=== PATIENT | male | born 1975 | race Caucasian/White ===

== ENCOUNTER 2017-02-01 21:38 | Emergency (ER) | payer OTHER ==
[~2017-02-01] VITALS: Ht 165.1 cm; Wt 72.6 kg
[~2017-02-01 21:38] MED LIST: AMOXICILLIN500 MG PO; AUGMENTIN 500 M1 TAB PO; BACTRIM DS 8001 TA1 PO; CELEXA10 MG PO; CEPHALEXIN500 M1 PO; CIPROFLOXACIN500 MG PO; CORTISPORIN SUS10 ML OT; Carafate1 GM PO; FLEXERIL10 MG PO; FLOMAX0.4 MG PO; FLONASE ALLERG9.9 ML NAS; FLOVENT HFA12 GM IH; HYDROCODONE BIT1 T11 PO; KEFLEX500 M1 PO; KEFLEX500 MG PO; LOMOTIL 0.025 M1 TA1 PO; LOMOTIL 0.025 M1 TAB PO; MOTRIN800 MG PO; Motrin,Rufen800 MG PO; NAPROSYN500 MG PO; NKHM PO; OMEPRAZOLE20 MG PO; PEPCID20 MG PO; PERCOCET 325 MG1 TA2 PO; PHENERGAN25 M1 PO; PREDNICOT20 MG PO; PRILOSEC20 M2 PO; PROTONIX40 MG PO; ROBAXIN500 MG PO; ROBAXIN750 MG PO; SEROQUEL100 MG PO; SEROQUEL200 MG PO; SILVADENE1% TP; SUDAFED 12 HOU120 MG PO; TESSALON PERLE100 M1 PO; THERA M PLUS T1 EACH PO; TRAMADOL HCL50 MG PO; TRIMOX500 MG PO; ULTRAM50 MG PO; VICODIN 5/500 505 MG PO; VICODIN ES 7501 TAB PO; ZOFRAN ODT4 MG SL; ZOFRAN4 MG PO
[2017-02-01 22:08] LABS: BASO % 0.2 % (0.0-1.0); EOS # 0.4 10*3/uL (0.0-0.4); EOS % 3.1 % (1.0-4.0); HEMATOCRIT 41.9 % (42.0-52.0); HEMOGLOBIN 14.1 g/dl (14.0-18.0); IG # 0.1 10*3/uL (0.0-0.1); LYMPH # 4.8 10*3/uL (1.3-4.4); MEAN CELL VOLUME 92.7 fl (80.0-94.0); MEAN CORPUSCULAR HGB 31.2 pg (27.0-31.0); MEAN CORPUSCULAR HGB CONC 33.7 g/dl (33.0-37.0); MEAN PLATELET VOLUME 11.6 fl (9.6-12.3); MONO # 1.4 10*3/uL (0.1-1.0); MONO % 10.7 % (3.0-9.0); NEUT % 47.3 % (47.0-73.0); PLATELET COUNT AUTOMATED 220 10*3/uL (130-400); RED BLOOD COUNT 4.52 10*6/uL (4.50-5.90); RED CELL DISTRI WIDTH 13.4 % (0-14.5); WHITE BLOOD COUNT 12.6 10*3/uL (4.8-10.8)
[2017-02-01 22:28] LABS: BILIRUBIN NEGATIVE (NEGATIVE); BLOOD 1+ (NEGATIVE); CLARITY CLEAR (CLEAR); COLOR YELLOW (YELLOW); GLUCOSE NEGATIVE (NEGATIVE); KETONE NEGATIVE (NEGATIVE); LEUKO ESTERASE NEGATIVE (NEGATIVE); NITRITE NEGATIVE (NEGATIVE); PROTEIN NEGATIVE (NEGATIVE); SPECIFIC GRAVITY 1.015 (1.005-1.030); UROBILINOGEN 0.2 E.U./dl (0.2-1.0)
[2017-02-01 22:36] LABS: BACTERIA 1+; URINE REFLEX COMMENT YES (NO)
[2017-02-01 22:47] LABS: BUN 18 mg/dl (7-24); CARBON DIOXIDE 26 mmol/L (21-32); CHLORIDE 110 mmol/L (98-107); EST GLOM FILT AFRICAN AMERICAN > 60 ml/min; GLUCOSE 91 mg/dL (65-99); POTASSIUM 3.9 mmol/L (3.5-5.1); SODIUM 144 mmol/L (136-145)
[2017-02-01] MEDS ORDERED: ULTRAM50 MG PO (23:06)
== END 2017-02-01 23:30 | disposition home or self-care (01) ==
LOC: ED 21:38
PROVIDERS: Emergency Medicine; Physician Assistant
DX: R10.9 Unspecified abdominal pain (principal); Z87.442 Personal history of urinary calculi; F17.200 Nicotine dependence, unspecified, uncomplicated; F32.9 Major depressive disorder, single episode, unspecified; J45.909 Unspecified asthma, uncomplicated; Z79.899 Other long term (current) drug therapy

== ENCOUNTER 2017-02-25 17:08 | Inpatient (IN) | payer OTHER ==
[~2017-02-25] VITALS: Ht 165.1 cm; Wt 63.2 kg
--- NOTE | ~2017-02-25 | CON ---
[place], [place] REPORT OF CONSULTATION NAME: MELCHOR HUNTER UNIT #: [id number] ROOM: 515 DOCTOR: SEAMUS JENKINS MDPREETNICKI BIRTHDATE: [birth year] DOS: HISTORY OF PRESENT ILLNESS: The patient is 41 years old who has presented with chief complaint of relentless nausea, vomiting, undergoing investigation. The patient has been placed on Protonix on antiemetics, IV hydration. At the time of admission, white blood cell was 14, H and H of 16 and 46. Differential within normal limit. Lactic acid 2.7. INR 1.0. Comprehensive metabolic panel, electrolytes balanced, liver function test normal. C-reactive protein is 0.4. Chest x-ray, no active disease. CT scan of the abdomen and pelvis, no acute process. Lactic acid 1.3. PAST MEDICAL HISTORY: Depression, gastroesophageal reflux, allergic rhinitis, Radha-Pearl tear. PAST SURGICAL HISTORY: Amputation of the finger, lithotripsy. SOCIAL HISTORY: Stopped smoking 17 years ago, stopped alcohol 3 months ago. FAMILY HISTORY: Noncontributory. ALLERGIES: To no known medications. MEDICATIONS: Medication list has been reviewed. REVIEW OF SYSTEMS: HEENT: Denies double vision, blurred vision. RESPIRATORY: Denies shortness of breath. CARDIOVASCULAR: Denies chest pain. DIGESTIVE SYSTEM: Hematemesis, relentless emesis. PHYSICAL EXAMINATION: VITAL SIGNS: Stable. HEENT: Head normocephalic, nontraumatic. Eyes: Pupils round, reactive. Sclerae nonicteric. Conjunctivae pink. Nose: Nonobstructed, nondeviated. Mouth free of aphthae ulcer, thrush. NECK: Supple, no thyromegaly, no cervical lymphadenopathy. CHEST: Symmetric anatomy, equal expansion. No wheeze. No rhonchi. HEART: Normal sinus rhythm, no gallop, no murmur. ABDOMEN: Soft. No hepato-organomegaly. Bowel sounds present. No pulsatile mass. EXTREMITIES: No cyanosis. No pedal edema. NEUROLOGIC: Alert, oriented to time, place, person. IMPRESSION: Hematemesis, recurrent emesis. OTHER ADJUNCTIVE DIAGNOSES: As outlined in the paragraph of past medical and surgical history. Blood culture negative. Urine culture negative. Hepatic function tests, amylase, lipase all within normal limits. CBC latest one, white blood cell 10, H and H of 14 and 43, differential within [place], [place] REPORT OF CONSULTATION NAME: MELCHOR HUNTER UNIT #: [id number] ROOM: [facility] DOCTOR: SEBASTIEN JENKINS MD BIRTHDATE: [birth year] normal limits. PLAN AND DISCUSSION: We are going to proceed with endoscopic assessment of upper GI tract. SEBASTIEN JENKINS MD CM:CONSTR:REPORT OF CONSULTATION 1045 03/01/17 0325 interface
--- NOTE | ~2017-02-25 | O ---
[place], [place] OPERATIVE NOTE NAME: MELCHOR HUNTER UNIT #: [id number] ROOM: 515 DOCTOR: SEBASTIEN JENKINS MD BIRTHDATE: [birth year] DOS: 02/28/2017 INDICATIONS: The patient is 41 years old who has presented with chief complaint of hematemesis, old history of ETOH and nicotine in very remote past. PROCEDURE: Today's procedure part of investigation is panendoscopy plus biopsy. PREMEDICATION: Versed and Diprivan. SCOPE: Olympus forward-viewing gastroscope Q10 video. REPORT: After putting the patient in the left lateral position and after application of lubricant to the scope, the scope was introduced. Thereafter, under direct visualization, I advanced through the length of esophagus without difficulty. Gastric pouch was entered. Small hiatal hernia was noticed. Gastritis seen. Duodenal bulb, second and third part within normal limits. Antral biopsy obtained. The patient extubated, tolerated procedure well. IMPRESSION: Small hiatal hernia, gastritis. No evidence of Radha-Pearl. No esophageal varicosity. PLAN: Protonix 40 mg daily. Regular diet. Discharge when stable. SEBASTIEN JENKINS MD CM:OPRECORD:OPERATIVE NOTE 1108 1623 SEBASTIEN JENKINS MD 02/28/17 1623 interface
[2017-02-25 17:12] VITALS: BP 110/60
[2017-02-25 17:40] LABS: BASO % 0.3 % (0.0-1.0); EOS # 0.1 10*3/uL (0.0-0.4); EOS % 0.5 % (1.0-4.0); HEMATOCRIT 46.6 % (42.0-52.0); IG # 0.1 10*3/uL (0.0-0.1); LYMPH # 3.3 10*3/uL (1.3-4.4); LYMPH % 22.6 % (27.0-41.0); MEAN CELL VOLUME 90.3 fl (80.0-94.0); MEAN CORPUSCULAR HGB CONC 34.3 g/dl (33.0-37.0); MEAN PLATELET VOLUME 11.5 fl (9.6-12.3); MONO # 1.3 10*3/uL (0.1-1.0); MONO % 8.7 % (3.0-9.0); NEUT # 9.7 10*3/uL (2.3-7.9); PLATELET COUNT AUTOMATED 227 10*3/uL (130-400); RED BLOOD COUNT 5.16 10*6/uL (4.50-5.90); RED CELL DISTRI WIDTH 13.1 % (0-14.5); WHITE BLOOD COUNT 14.5 10*3/uL (4.8-10.8)
[2017-02-25 17:49] LABS: PROTHROMBIN TIME 10.7 SECONDS (9.0-12.4)
[2017-02-25 17:57] LABS: ALBUMIN 4.6 gm/dl (3.1-4.5); ALKALINE PHOSPHATASE 102 U/L (45-117); BILIRUBIN, TOTAL 0.5 mg/dl (0.2-1.0); BUN 11 mg/dl (7-24); C-REACTIVE PROTEIN 0.42 MG/DL (0-0.3); CARBON DIOXIDE 23 mmol/L (21-32); CHLORIDE 108 mmol/L (98-107); CKMB 0.7 ng/ml (0.5-3.6); CPK 135 U/L (39-308); EST GLOM FILT AFRICAN AMERICAN > 60 ml/min; GLUCOSE 121 mg/dL (65-99); MAGNESIUM 2.2 mg/dL (1.5-2.1); SGOT/AST 16 IU/L (3-35); SGPT/ALT 21 U/L (12-78); SODIUM 141 mmol/L (136-145); TOTAL PROTEIN 8.4 gm/dL (6.4-8.2)
[2017-02-25 17:58] LABS: TROPONIN I < 0.015 ng/ml (<0.045)
[2017-02-25 19:38] LABS: LA>2 REFLEX 2 HR DRAW NOW
[2017-02-25 21:10] LABS: BILIRUBIN NEGATIVE (NEGATIVE); BLOOD 3+ (NEGATIVE); CLARITY CLEAR (CLEAR); COLOR YELLOW (YELLOW); GLUCOSE NEGATIVE (NEGATIVE); KETONE 3+ (NEGATIVE); LEUKO ESTERASE NEGATIVE (NEGATIVE); NITRITE NEGATIVE (NEGATIVE); PH 6.5 (5.0-9.0); PROTEIN TRACE (NEGATIVE); SPECIFIC GRAVITY <= 1.005 (1.005-1.030); UROBILINOGEN 0.2 E.U./dl (0.2-1.0)
[2017-02-25 21:22] LABS: BACTERIA TRACE; EPITHELIAL CELLS 15-20; URINE REFLEX COMMENT YES (NO); WBC 0-2 wbc/hpf (0-5)
[2017-02-25 21:42] VITALS: BP 140/90
[2017-02-25 22:30] VITALS: BP 135/89
[2017-02-25] MEDS ORDERED: SEROQUEL300 MG PO (22:46)
[2017-02-25] MEDS ORDERED: ULTRAM50 MG PO (22:49)
[2017-02-26] VITALS: BP 128/69
[2017-02-26 04:52] VITALS: BP 105/63
[2017-02-26 06:12] LABS: BASO % 0.2 % (0.0-1.0); EOS # 0.2 10*3/uL (0.0-0.4); EOS % 1.9 % (1.0-4.0); HEMOGLOBIN 14.5 g/dl (14.0-18.0); IG # 0.1 10*3/uL (0.0-0.1); LYMPH # 4.6 10*3/uL (1.3-4.4); LYMPH % 39.8 % (27.0-41.0); MEAN CORPUSCULAR HGB 30.9 pg (27.0-31.0); MEAN PLATELET VOLUME 11.4 fl (9.6-12.3); MONO # 1.2 10*3/uL (0.1-1.0); MONO % 10.2 % (3.0-9.0); NEUT # 5.4 10*3/uL (2.3-7.9); PLATELET COUNT AUTOMATED 181 10*3/uL (130-400); RED CELL DISTRI WIDTH 13.3 % (0-14.5); WHITE BLOOD COUNT 11.5 10*3/uL (4.8-10.8)
[2017-02-26 06:19] LABS: MEAN CELL VOLUME 93.6 fl (80.0-94.0)
[2017-02-26 06:48] LABS: ALBUMIN 3.8 gm/dl (3.1-4.5); ALKALINE PHOSPHATASE 83 U/L (45-117); BILIRUBIN, TOTAL 0.7 mg/dl (0.2-1.0); BUN 8 mg/dl (7-24); CARBON DIOXIDE 28 mmol/L (21-32); CHLORIDE 108 mmol/L (98-107); CHOLESTEROL 290 mg/dL (<200); EST GLOM FILT AFRICAN AMERICAN > 60 ml/min; FREE T4 1.22 ng/dl (0.76-1.46); GLUCOSE 95 mg/dL (65-99); HDL CHOLESTEROL 58 mg/dl (40-60); LDL CHOLESTEROL 217 mg/dL (9-159); MAGNESIUM 1.9 mg/dL (1.5-2.1); PHOSPHOROUS 3.1 mg/dL (2.5-4.9); POTASSIUM 3.5 mmol/L (3.5-5.1); SGOT/AST 16 IU/L (3-35); SGPT/ALT 21 U/L (12-78); SODIUM 141 mmol/L (136-145); TOTAL PROTEIN 7.1 gm/dL (6.4-8.2); TRIGLYCERIDES 75 mg/dl (<150); VLDL CHOLESTEROL 15 mg/dL (6-40)
[2017-02-26 07:25] LABS: HEMOGLOBIN A1c 5.8 % (4.8-5.6)
[2017-02-26 07:37] LABS: FOLIC ACID 19.79 ng/mL (>5.38); VITAMIN D, 25-HYDROXY 32.2 ng/mL (30-100)
[2017-02-26 08:00] VITALS: BP 118/68
[2017-02-26] MEDS ORDERED: CITALOPRAM HYDR20 MG PO (09:57)
[2017-02-26] MEDS ORDERED: OMEPRAZOLE D/R20 MG PO (09:59)
[2017-02-26 16:00] VITALS: BP 127/97
[2017-02-26 20:00] VITALS: BP 135/85
[2017-02-27] VITALS: BP 131/75
[2017-02-27 07:38] LABS: BASO % 0.3 % (0.0-1.0); EOS # 0.3 10*3/uL (0.0-0.4); EOS % 2.6 % (1.0-4.0); HEMATOCRIT 43.2 % (42.0-52.0); HEMOGLOBIN 14.2 g/dl (14.0-18.0); IG # 0.1 10*3/uL (0.0-0.1); LYMPH # 3.7 10*3/uL (1.3-4.4); LYMPH % 36.7 % (27.0-41.0); MEAN CELL VOLUME 93.9 fl (80.0-94.0); MEAN CORPUSCULAR HGB 30.9 pg (27.0-31.0); MEAN CORPUSCULAR HGB CONC 32.9 g/dl (33.0-37.0); MEAN PLATELET VOLUME 11.1 fl (9.6-12.3); MONO # 1.2 10*3/uL (0.1-1.0); MONO % 11.9 % (3.0-9.0); NEUT # 4.8 10*3/uL (2.3-7.9); NEUT % 47.5 % (47.0-73.0); PLATELET COUNT AUTOMATED 168 10*3/uL (130-400); RED CELL DISTRI WIDTH 13.5 % (0-14.5)
[2017-02-27 07:59] VITALS: BP 130/74
[2017-02-27 08:11] LABS: ALBUMIN 3.6 gm/dl (3.1-4.5); BILIRUBIN, DIRECT 0.1 mg/dL (0.0-0.2); BILIRUBIN, TOTAL 0.7 mg/dl (0.2-1.0); TOTAL PROTEIN 6.9 gm/dL (6.4-8.2)
[2017-02-27 12:00] VITALS: BP 126/86
[2017-02-27 16:00] VITALS: BP 137/85
[2017-02-27 20:00] VITALS: BP 138/81
[2017-02-28] VITALS (7 sets, daily range): BP systolic 87–139; BP diastolic 54–89
[2017-02-28] MEDS ORDERED: PANTOPRAZOLE SO40 MG PO (12:22)
[2017-02-28] MEDS ORDERED: SIMVASTATIN20 MG PO (12:22)
== END 2017-02-28 13:55 | disposition home or self-care (01) | DRG 872 ==
LOC: ED 17:08 → 5E 21:20 → EDHOLD 21:20 → 5E 21:29
PROVIDERS: Emergency Medicine; Internal Medicine; Internal Medicine Gastroenterology; Internal Medicine Hospice and Palliative Medicine
PROC: 0DB68ZX Excision of Stomach, Via Natural or Artificial Opening Endoscopic, Diagnostic (ICD-10-PCS; principal; 2017-02-28)
DX: A41.9 Sepsis, unspecified organism (principal); K92.0 Hematemesis; E87.8 Other disorders of electrolyte and fluid balance, not elsewhere classified; E67.8 Other specified hyperalimentation; F33.9 Major depressive disorder, recurrent, unspecified; E83.41 Hypermagnesemia; K21.9 Gastro-esophageal reflux disease without esophagitis; F10.10 Alcohol abuse, uncomplicated; R31.29 Other microscopic hematuria; E78.00 Pure hypercholesterolemia, unspecified; R82.4 Acetonuria; R73.9 Hyperglycemia, unspecified; R73.03 Prediabetes; F17.200 Nicotine dependence, unspecified, uncomplicated; K29.70 Gastritis, unspecified, without bleeding; K44.9 Diaphragmatic hernia without obstruction or gangrene; Z87.442 Personal history of urinary calculi; Z87.11 Personal history of peptic ulcer disease; Z89.029 Acquired absence of unspecified finger(s); Z79.899 Other long term (current) drug therapy

== ENCOUNTER 2017-03-25 21:30 | Emergency (ER) | payer OTHER ==
[~2017-03-25] VITALS: Wt 68.0 kg
[~2017-03-25 21:30] MED LIST changes: +CITALOPRAM HYDR20 MG PO; +OMEPRAZOLE D/R20 MG PO; +PANTOPRAZOLE SO40 MG PO; +SEROQUEL300 MG PO; +SIMVASTATIN20 MG PO
[2017-03-25 22:12] LABS: BASO # 0.1 10*3/uL (0.0-0.1); BASO % 0.3 % (0.0-1.0); EOS # 0.3 10*3/uL (0.0-0.4); EOS % 2.2 % (1.0-4.0); HEMATOCRIT 44.3 % (42.0-52.0); IG # 0.2 10*3/uL (0.0-0.1); LYMPH % 25.9 % (27.0-41.0); MEAN CELL VOLUME 91.5 fl (80.0-94.0); MEAN CORPUSCULAR HGB CONC 33.9 g/dl (33.0-37.0); MEAN PLATELET VOLUME 10.6 fl (9.6-12.3); MONO # 1.5 10*3/uL (0.1-1.0); MONO % 9.8 % (3.0-9.0); NEUT # 9.2 10*3/uL (2.3-7.9); NEUT % 60.2 % (47.0-73.0); PLATELET COUNT AUTOMATED 197 10*3/uL (130-400); RED BLOOD COUNT 4.84 10*6/uL (4.50-5.90); RED CELL DISTRI WIDTH 13.2 % (0-14.5); WHITE BLOOD COUNT 15.3 10*3/uL (4.8-10.8)
[2017-03-25 22:26] LABS: ALKALINE PHOSPHATASE 105 U/L (45-117); BILIRUBIN, TOTAL 0.4 mg/dl (0.2-1.0); BUN 11 mg/dl (7-24); CARBON DIOXIDE 27 mmol/L (21-32); CHLORIDE 102 mmol/L (98-107); EST GLOM FILT AFRICAN AMERICAN > 60 ml/min; GLUCOSE 97 mg/dL (65-99); POTASSIUM 3.4 mmol/L (3.5-5.1); SGOT/AST 20 IU/L (3-35); SGPT/ALT 25 U/L (12-78); SODIUM 141 mmol/L (136-145); TOTAL PROTEIN 7.8 gm/dL (6.4-8.2)
[2017-03-25] MEDS ORDERED: ZOFRAN ODT4 MG SL (22:57)
== END 2017-03-25 23:18 | disposition home or self-care (01) ==
LOC: ED 21:30
PROVIDERS: Physician Assistant
DX: K29.70 Gastritis, unspecified, without bleeding (principal); R11.2 Nausea with vomiting, unspecified

== ENCOUNTER 2017-06-05 12:41 | Emergency (ER) | payer OTHER ==
[~2017-06-05] VITALS: Wt 61.2 kg
[2017-06-05] MEDS ORDERED: ONDANSETRON HYDR4 M1 PO (12:48)
[2017-06-05 13:19] LABS: BASO % 0.2 % (0.0-1.0); EOS # 0.1 10*3/uL (0.0-0.4); EOS % 0.5 % (1.0-4.0); HEMOGLOBIN 15.2 g/dl (14.0-18.0); LYMPH # 2.8 10*3/uL (1.3-4.4); LYMPH % 25.3 % (27.0-41.0); MEAN CELL VOLUME 92.4 fl (80.0-94.0); MEAN CORPUSCULAR HGB 31.9 pg (27.0-31.0); MEAN CORPUSCULAR HGB CONC 34.5 g/dl (33.0-37.0); MEAN PLATELET VOLUME 10.7 fl (9.6-12.3); MONO # 0.9 10*3/uL (0.1-1.0); MONO % 8.1 % (3.0-9.0); NEUT # 7.1 10*3/uL (2.3-7.9); NEUT % 65.1 % (47.0-73.0); PLATELET COUNT AUTOMATED 215 10*3/uL (130-400); RED BLOOD COUNT 4.76 10*6/uL (4.50-5.90); RED CELL DISTRI WIDTH 13.1 % (0-14.5); WHITE BLOOD COUNT 10.9 10*3/uL (4.8-10.8)
[2017-06-05 13:34] LABS: ALBUMIN 4.1 gm/dl (3.1-4.5); BUN 8 mg/dl (7-24); CHLORIDE 108 mmol/L (98-107); CREATININE 0.82 mg/dL (0.70-1.30); POTASSIUM 4.2 mmol/L (3.5-5.1); SGOT/AST 20 IU/L (3-35); SGPT/ALT 19 U/L (12-78); SODIUM 140 mmol/L (136-145); TOTAL PROTEIN 7.8 gm/dL (6.4-8.2)
[2017-06-05 13:39] LABS: ALKALINE PHOSPHATASE 100 U/L (45-117)
[2017-06-05 15:15] LABS: BILIRUBIN 1+ (NEGATIVE); BLOOD 2+ (NEGATIVE); CLARITY SL CLOUDY (CLEAR); COLOR YELLOW (YELLOW); GLUCOSE NEGATIVE (NEGATIVE); KETONE 3+ (NEGATIVE); LEUKO ESTERASE NEGATIVE (NEGATIVE); NITRITE NEGATIVE (NEGATIVE); PH 5.5 (5.0-9.0); SPECIFIC GRAVITY 1.025 (1.005-1.030); UROBILINOGEN 0.2 E.U./dl (0.2-1.0)
[2017-06-05 15:22] LABS: BACTERIA 2+; WBC 0-2 wbc/hpf (0-5)
[2017-06-05] MEDS ORDERED: ZOFRAN ODT4 MG SL (15:36)
== END 2017-06-05 17:33 | disposition home or self-care (01) ==
LOC: ED 12:41
PROVIDERS: Nurse Practitioner Family
DX: K29.00 Acute gastritis without bleeding (principal); M54.9 Dorsalgia, unspecified; R51 Headache; Z87.442 Personal history of urinary calculi; Z79.899 Other long term (current) drug therapy

== ENCOUNTER 2017-09-11 16:06 | Emergency (ER) | payer OTHER ==
[~2017-09-11] VITALS: Wt 61.2 kg
[~2017-09-11 16:06] MED LIST changes: +ONDANSETRON HYDR4 M1 PO
[2017-09-11] MEDS ORDERED: NAPROSYN500 MG PO (18:10)
== END 2017-09-11 18:14 | disposition home or self-care (01) ==
LOC: ED 16:06
DX: S46.911A Strain of unspecified muscle, fascia and tendon at shoulder and upper arm level, right arm, initial encounter (principal); F17.200 Nicotine dependence, unspecified, uncomplicated; Z98.890 Other specified postprocedural states; Z79.899 Other long term (current) drug therapy; X58.XXXA Exposure to other specified factors, initial encounter; Y93.89 Activity, other specified; Y92.89 Other specified places as the place of occurrence of the external cause; Y99.9 Unspecified external cause status

== ENCOUNTER 2017-12-21 18:43 | Emergency (ER) | payer OTHER ==
[~2017-12-21] VITALS: Wt 70.8 kg
[2017-12-21] MEDS ORDERED: SILVADENE,SSD C50 GM T (18:48)
[2017-12-21] MEDS ORDERED: KEFLEX500 M1 PO (18:48)
== END 2017-12-21 19:02 | disposition home or self-care (01) ==
LOC: ED 18:43
DX: T22.112A Burn of first degree of left forearm, initial encounter (principal); J45.909 Unspecified asthma, uncomplicated; K21.9 Gastro-esophageal reflux disease without esophagitis; E11.65 Type 2 diabetes mellitus with hyperglycemia; Z87.442 Personal history of urinary calculi; Z79.899 Other long term (current) drug therapy; X19.XXXA Contact with other heat and hot substances, initial encounter; Y93.89 Activity, other specified; Y92.89 Other specified places as the place of occurrence of the external cause; Y99.9 Unspecified external cause status

== ENCOUNTER 2018-03-11 11:51 | Emergency (ER) | payer OTHER ==
[~2018-03-11] VITALS: Ht 165.1 cm; Wt 63.5 kg
[~2018-03-11 11:51] MED LIST changes: +SILVADENE,SSD C50 GM T
[2018-03-11 12:20] LABS: BASO % 0.2 % (0.0-1.0); EOS # 0.2 10*3/uL (0.0-0.4); EOS % 1.4 % (1.0-4.0); HEMATOCRIT 45.1 % (42.0-52.0); LYMPH # 3.4 10*3/uL (1.3-4.4); LYMPH % 27.4 % (27.0-41.0); MEAN CELL VOLUME 92.8 fl (80.0-94.0); MEAN CORPUSCULAR HGB 30.9 pg (27.0-31.0); MEAN CORPUSCULAR HGB CONC 33.3 g/dl (33.0-37.0); MONO # 1.2 10*3/uL (0.1-1.0); MONO % 9.4 % (3.0-9.0); NEUT # 7.6 10*3/uL (2.3-7.9); PLATELET COUNT AUTOMATED 222 10*3/uL (130-400); RED BLOOD COUNT 4.86 10*6/uL (4.50-5.90); RED CELL DISTRI WIDTH 12.9 % (0-14.5); WHITE BLOOD COUNT 12.5 10*3/uL (4.8-10.8)
[2018-03-11 12:29] LABS: ACT PARTIAL THROMBO TIME 24.3 SECONDS (20.8-31.5); INTERNATIONAL NORM RATIO 0.9 (2.0-3.5)
[2018-03-11 12:38] LABS: ALKALINE PHOSPHATASE 103 U/L (45-117); BUN 22 mg/dl (7-24); CHLORIDE 105 mmol/L (98-107); CREATININE 0.86 mg/dL (0.70-1.30); LIPASE 237 U/L (73-393); POTASSIUM 4.1 mmol/L (3.5-5.1); SGOT/AST 13 IU/L (3-35); SGPT/ALT 23 U/L (12-78); SODIUM 141 mmol/L (136-145); TOTAL PROTEIN 7.5 gm/dL (6.4-8.2)
[2018-03-11 12:39] LABS: ETHYL ALCOHOL < 3.0 mg/dl (<3); TROPONIN I < 0.015 ng/ml (<0.045)
[2018-03-11] MEDS ORDERED: PRILOSEC20 M1 PO ×2 (12:55→13:12)
[2018-03-11] MEDS ORDERED: ALA-CORT28.4 GM T ×2 (12:55→13:12)
== END 2018-03-11 12:55 | disposition home or self-care (01) ==
LOC: ED 11:51
PROVIDERS: Emergency Medicine
DX: K21.0 Gastro-esophageal reflux disease with esophagitis (principal); L30.8 Other specified dermatitis; J45.909 Unspecified asthma, uncomplicated; E78.00 Pure hypercholesterolemia, unspecified; E11.65 Type 2 diabetes mellitus with hyperglycemia; F17.200 Nicotine dependence, unspecified, uncomplicated; Z87.442 Personal history of urinary calculi; Z98.890 Other specified postprocedural states; Z79.899 Other long term (current) drug therapy; Z87.11 Personal history of peptic ulcer disease

== ENCOUNTER 2018-08-05 09:29 | Emergency (ER) | payer OTHER ==
[~2018-08-05] VITALS: Ht 165.1 cm; Wt 65.8 kg
[~2018-08-05 09:29] MED LIST changes: +ALA-CORT28.4 GM T; +PRILOSEC20 M1 PO
== END 2018-08-05 11:52 | disposition home or self-care (01) ==
LOC: ED 09:29
DX: S61.411A Laceration without foreign body of right hand, initial encounter (principal); Z23 Encounter for immunization; Z89.029 Acquired absence of unspecified finger(s); Z79.899 Other long term (current) drug therapy; W20.8XXA Other cause of strike by thrown, projected or falling object, initial encounter; Y93.89 Activity, other specified; Y92.89 Other specified places as the place of occurrence of the external cause; Y99.8 Other external cause status

== ENCOUNTER 2020-09-03 08:40 | Emergency (ER) | payer OTHER ==
[~2020-09-03] VITALS: Wt 63.5 kg
[~2020-09-03 08:40] MED LIST changes: +CYCLOBENZAPRINE10 MG PO
[2020-09-03] MEDS ORDERED: AMOXICILLIN500 M2 PO (09:18)
== END 2020-09-03 09:18 | disposition home or self-care (01) ==
LOC: ED 08:40
DX: K08.89 Other specified disorders of teeth and supporting structures (principal); Z79.899 Other long term (current) drug therapy

== ENCOUNTER 2020-11-02 18:56 | Emergency (ER) | payer OTHER ==
[~2020-11-02] VITALS: Ht 165.1 cm; Wt 63.5 kg
[~2020-11-02 18:56] MED LIST changes: +AMOXICILLIN500 M2 PO
[2020-11-02] MEDS ORDERED: VIBRAMYCIN100 MG PO (19:22)
== END 2020-11-02 19:40 | disposition home or self-care (01) ==
LOC: ED 18:56
DX: S61.452A Open bite of left hand, initial encounter (principal); K21.9 Gastro-esophageal reflux disease without esophagitis; F32.9 Major depressive disorder, single episode, unspecified; Z87.442 Personal history of urinary calculi; Z79.2 Long term (current) use of antibiotics; Z79.899 Other long term (current) drug therapy; Z89.021 Acquired absence of right finger(s); W55.01XA Bitten by cat, initial encounter; Y93.89 Activity, other specified; Y92.89 Other specified places as the place of occurrence of the external cause; Y99.8 Other external cause status